=== PATIENT | female | born 1990 | race African-American/Black ===

== ENCOUNTER 2017-02-12 08:30 | Emergency (ER) | payer MEDICAID ==
[~2017-02-12 08:30] MED LIST: ALBUTEROL17 GM INH; BACTRIM DS TABL1 TAB PO; BRETHINE2.5 MG; HYDROXYZINE HCL50 MG; PRENATAL1 TAB; PROCARDIA10 MG
[2017-02-12] MEDS ORDERED: A THRU Z ADVAN1 EACH PO (08:36)
[2017-02-12] MEDS ORDERED: BUSPIRONE HCL15 M2 PO (08:36)
[2017-02-12] MEDS ORDERED: SERTRALINE HCL100 M5 PO (08:37)
[2017-02-12] MEDS ORDERED: DEPAKOTE500 M1 PO (08:37)
[2017-02-12] MEDS ORDERED: INVEGA3 MG PO (08:37)
[2017-02-12] MEDS ORDERED: INVEGA SUS234 MG/1.1 IM (08:38)
[2017-02-12 09:50] LABS: BASO % 0.4 % (0-2); EOS % 5.9 % (0-7); EOSINOPHIL ABSOLUTE COUNT 0.4 tho/cmm (0.0-0.7); HGB-HEMOGLOBIN 13.2 gm/dl (12.0-15.5); IMMATURE GRANULOCYTES ABSOLUTE 0.03 tho/cmm (0-0.03); IMMATURE GRANULOCYTES PERCENT 0.4 % (0-0.3); LYMPH % 42.1 % (20-45); LYMPH ABSOLUTE COUNT 2.9 tho/cmm (0.8-4.5); MCH (MEAN CORPUSCULAR HGB) 28.6 pg (28.0-32.0); MCV (MEAN CELL VOLUME) 86.6 fl (82.0-96.0); MEAN PLATELET VOLUME 11.4 cmc (9.4-12.4); MONO % 9.6 % (0-12); MONOCYTE ABSOLUTE COUNT 0.7 tho/cmm (0.0-1.2); NEUTROPHIL ABSOLUTE COUNT 2.9 tho/cmm (1.6-8.0); NEUTROPHIL-AUTOMATED 2.9 tho/cmm (1.6-8.0); NEUTROPHILS % 41.6 % (40-80); PLATELET COUNT 146 tho/cmm (150-450); RED BLOOD COUNT 4.62 mil/cmm (4.00-5.20); RED CELL DISTRIBUTION WIDTH 15.9 % (12.4-16.4)
[2017-02-12 10:02] LABS: PREGNANCY-SERUM NEGATIVE (NEGATIVE)
[2017-02-12 10:03] LABS: ALB/GLOB RATIO 0.9 (0.8-2.0); ALBUMIN 3.6 g/dl (3.5-5.0); ALKALINE PHOSPHATASE 131 U/L (33-138); ALT/SGPT 169 U/L (12-78); ANION GAP 11 mmol/L (0-20); AST/SGOT 69 U/L (10-40); BILIRUBIN,TOTAL 0.2 mg/dl (0-1.5); BLOOD UREA NITROGEN 9 mg/dl (6-24); CALCIUM 9.1 mg/dl (8.5-10.5); CARBON DIOXIDE-VENOUS 25 mmol/L (22-32); CHLORIDE 110 mmol/l (96-110); CREATININE 0.77 mg/dl (0.50-1.10); GLUCOSE 104 mg/dL (70-110); POTASSIUM 4.1 mmol/L (3.7-5.1); SODIUM 142 mmol/L (135-145); eGFR VALUE FOR BLACK >90 mL/Min
[2017-02-12 10:31] LABS: URINE BILIRUBIN NEGATIVE (NEG); URINE BLOOD MODERATE (NEG); URINE GLUCOSE (UA) NEGATIVE (NEG); URINE KETONE NEGATIVE (NEG); URINE LEUKOCYTE ESTERASE NEGATIVE (NEG); URINE NITRITE NEGATIVE (NEG); URINE PROTEIN NEGATIVE (NEG)
[2017-02-12 10:33] LABS: URINE APPEARANCE CLEAR; URINE COLOR PALE YELLOW
[2017-02-12 10:41] LABS: URINE EPITHELIAL CELLS 0 /[HPF] (0-10); URINE WBC 0 /[HPF] (0-5)
[2017-07-04] MEDS ORDERED: SIMETHICONE80 M3 PO (10:02)
[2017-07-04] MEDS ORDERED: ABILIFY IM (10:03)
[2017-07-04] MEDS ORDERED: ABILIFY20 M1 PO (10:03)
[2017-07-04] MEDS ORDERED: PROBIOTIC1 EA10 PO (10:04)
[2017-07-04] MEDS ORDERED: ZOFRAN4 M2 PO (10:04)
[2017-07-04] MEDS ORDERED: XYZAL5 M1 PO (10:09)
[2017-07-04] MEDS ORDERED: MIRENA1 EACH IU (10:17)
== END 2017-02-12 10:30 | disposition left against medical advice (07) ==
LOC: EDMED 08:30
PROVIDERS: Emergency Medicine
DX: R51 Headache (principal); G89.29 Other chronic pain; R60.0 Localized edema; F41.9 Anxiety disorder, unspecified; F32.9 Major depressive disorder, single episode, unspecified; F20.9 Schizophrenia, unspecified; Z79.899 Other long term (current) drug therapy; Z98.890 Other specified postprocedural states; F17.200 Nicotine dependence, unspecified, uncomplicated